=== PATIENT | male | born 1980 ===

== ENCOUNTER 2025-02-10 07:15 | Inpatient (IN) | payer OTHER ==
[~2025-02-10] VITALS: Ht 182.9 cm; Wt 120.4 kg
--- NOTE | 2025-02-10 07:27 | ED.PDOC ---
General HPI Comments This is a 44 year old male presenting to the ED with chief complaint of abdominal pain. Patient reports that he has been experiencing 10/10 lower abdominal pain with associated hematuria since an hour ago. Patient relays that his pain is similar to the time when he had a kidney stone. Patient denies any N/V/D, dysuria, flank pain, fever, or chills. Chief Complaint: Abdominal Pain Time Seen by MD: 07:25 Reviewed notes: Nurses Notes, Medications, Allergies Allergies: Coded Allergies: No Known Drug Allergy (Verified Allergy, Unknown, 02/10/25) Information Source: Patient Mode of Arrival: Ambulatory Severity: Moderate Timing: Hours Duration: Since onset Prehospital treatment: None Onset: Spontaneous Symptoms: Hematuria History of: Kidney stone Location: Suprapubic Penile discharge: None Modifying factors: None associated signs and symptoms: Abdominal Pain, Hematuria Past Medical History PAST MEDICAL HISTORY: HIV, Kidney Stones Surgical History (Other): Rt humerus surgery Family History Family History: Reviewed,noncontributory to illness Social History Smoker: Non-Smoker Alcohol: Denies ETOH Use Drugs: Denies Drug Use Lives In: Home Constitutional: denies: chills, diaphoresis, fatigue, fever, malaise, sweats, weakness, others EENTM: denies: blurred vision, double vision, ear bleeding, ear discharge, ear drainage, ear pain, ear ringing, eye pain, eye redness, hearing loss, mouth pain, mouth swelling, nasal discharge, nose bleeding, nose congestion, nose pain, photophobia, tearing, throat pain, throat swelling, voice changes, others Respiratory: denies: cough, hemoptysis, orthopnea, SOB at rest, shortness of breath, SOB with excertion, stridor, wheezing, others Cardiovascular: denies: chest pain, dizzy spells, diaphoresis, Dyspnea on exertion, edema, irregular heart beat, left arm pain, lightheadedness, palpitations, PND, syncope, others Gastrointestinal: reports: abdominal pain; denies: abdomen distended, blood streaked bowels, constipated, diarrhea, dysphagia, difficulty swallowing, hematemesis, melena, nausea, poor appetite, poor fluid intake, rectal bleeding, rectal pain, vomiting, others Genitourinary: reports: hematuria; denies: burning, dysuria, flank pain, frequency, incontinence, penile discharge, penile sore, pain, testicle pain, testicle swelling, urgency, others Neurological: denies: dizziness, fainting, headache, left sided numbness, left sided weakness, numbness, paresthesia, pre-existing deficit, right sided numbness, right sided weakness, seizure, speech problems, tingling, tremors, weakness, others Musculoskeletal: denies: back pain, gout, joint pain, joint swelling, muscle pain, muscle stiffness, neck pain, others Integumetry: denies: bruises, change in color, change in hair/nails, dryness, laceration, lesions, lumps, rash, wounds, others Allergic/Immunocompromised: denies: Difficulty Healing, Frequent Infections, Hives, Itching, others Hematologic/Lymphatic: denies: anemia, blood clots, easy bleeding, easy bruising, swollen glands, others Endocrine: denies: excessive hunger, excessive sweating, excessive thirst, excessive urination, flushing, intolerance to cold, intolerance to heat, unexplained weight gain, unexplained weight loss, others Psychiatric: denies: anxiety, bipolar disorder, depression, hopeless, panic disorder, schizophrenia, sleepless, suicidal, others All Other Systems: Reviewed and Negative Physical Exam General Appearance: Moderate Distress HEENT: Normal ENT Inspection, Pharynx Normal, TMs Normal Neck: Full Range of Motion, Non-Tender, Normal, Normal Inspection Respiratory: Chest Non-Tender, Lungs Clear, No Accessory Muscle Use, No Respiratory Distress, Normal Breath Sounds Cardiovascular: No Edema, No JVD, No Murmur, No Gallop, Normal Peripheral Pulses, Regular Rate/Rhythm Breast Exam: Deferred Gastrointestinal: LLQ, No Organomegaly, No Pulsatile Mass, Normal Bowel Sounds, RLQ, Soft, Suprapubic, Tenderness Genitalia: Deferred Pelvic: Deferred Rectal: Deferred Extremities: No calf tenderness, Normal capillary refill, No pedal edema Musculoskeletal : Apperance: Normal Neurologic: Alert, gang ripsaw operator II-XII nml as Tested, Motor Weakness, Normal Affect, Normal Mood, No Sensory Deficits Cerebellar Function: Normal Reflexes: Normal Skin: Dry, Normal Color, Warm Lymphatic: No Adenopathy Was a procedure done? Was a procedure done?: No Differential Diagnosis Kidney stone (Female): N/A Kidney stone (Male): Pyelonephritis, Urinary obstruction, Urolithiasis X-Ray, Labs, Meds, VS Vital Signs Date Time Temp Pulse Resp B/P (MAP) Pulse Ox O2 Delivery O2 Flow Rate FiO2 02/10/25 08:24 79 20 133/83 02/10/25 07:16 97.7 84 20 171/94 95 97.7 Lab Test 02/10/25 08:16 02/10/25 08:00 Range/Units Urine Color Yellow Yellow Urine Clarity Ex.turbid Clear Urine pH 5.5 5.0-9.0 Urine Specific [place] 1.036 H 1.001-1.035 Urine Protein 1+ H Negative Urine Ketones Negative Negative Urine Blood 3+ H Negative /uL Urine Nitrite Negative Negative Urine Bilirubin Negative Negative Urine Urobilinogen Normal Negative mg/dL Urine Leukocyte Esterase Negative Negative /uL Urine RBC 66 0 - 3 /hpf Urine Microscopic WBC 0-3 /HPF Urine Squamous Epithelial Cells Few <5 /hpf Urine Amorphous Crystals Mod None Seen /hpf Urine Bacteria None seen None Seen /hpf Urine Mucus Moderate None Seen Urine Glucose Trace Normal mg/dL White Blood Count 10.9 H 4.4-10.8 10^3/uL Red Blood Count 5.43 4.5-5.90 10^6/uL Hemoglobin 14.7 13.5-17.5 g/dL Hematocrit 43.8 41.0-53.0 % Mean Corpuscular Volume 80.8 80.0-100.0 fL Mean Corpuscular Hemoglobin 27.1 L 28.0-32.0 pg Mean Corpuscular Hemoglobin Concent 33.5 32.0-36.0 g/dL Red Cell Distribution Width 17.2 H 11.8-14.3 % Platelet Count 371 140-450 10^3/uL Mean Platelet Volume 7.7 6.9-10.8 fL Neutrophils (%) (Auto) 68.6 37.0-80.0 % Lymphocytes (%) (Auto) 24.3 10.0-50.0 % Monocytes (%) (Auto) 6.1 0.0-12.0 % Eosinophils (%) (Auto) 0.4 0.0-7.0 % Basophils (%) (Auto) 0.6 0.0-2.0 % Neutrophils # (Auto) 7.5 1.6-8.6 10 ^3/uL Lymphocytes # (Auto) 2.6 0.4-5.4 10 ^3/uL Monocytes # (Auto) 0.7 0-1.3 10 ^3/uL Eosinophils # (Auto) 0 0-0.8 10 ^3/uL Basophils # (Auto) 0.1 0-0.2 10 ^3/uL Nucleated Red Blood Cells 0.2 % Sodium Level 140 136-145 mmol/L Potassium Level 4.4 3.5-5.1 mmol/L Chloride Level 104 98-107 mmol/L Carbon Dioxide Level 22 20-31 mmol/L Anion Gap 14 5-15 Blood Urea Nitrogen 9 9-23 mg/dL Creatinine 1.07 0.700-1.30 mg/dL Glomerular Filtration Rate Calc 88 >90 mL/min BUN/Creatinine Ratio 8.4 L 10.0-20.0 Serum Glucose 156 H 74-106 mg/dL Calcium Level 9.6 8.7-10.4 mg/dL Current Medications Medications (Trade) Dose Ordered Sig/John Route Start Time Stop Time Status Last Admin Ondansetron HCl (Zofran) 4 mg ONCE ONCE IV 02/10/25 07:30 02/10/25 07:31 DC 02/10/25 08:22 Hydromorphone HCl (Dilaudid Injection) 0.5 mg ONCE ONCE IV 02/10/25 07:30 02/10/25 07:31 DC 02/10/25 08:24 Sodium Chloride 500 ml @ 500 mls/hr Q1H ONCE IVB 02/10/25 07:30 02/10/25 08:29 DC 02/10/25 07:30 CT Abd/Pel indicates: 1. Mild left hydronephrosis with a 3 mm stone at the left ureterovesical junction. 2. Additional nonobstructing stone in the left renal collecting system measuring 17 mm. 3. Hepatic steatosis. 4. Pulmonary nodules measuring up to 12 mm. 5. Follow-up CT chest in 3 months recommended. IV Hep-Lock was established The patient is being given a bolus of normal saline at 500 cc The patient was given Dilaudid 0.5 mg for the pain The patient was given Zofran 4 mg IV push for the nausea At this time, the patient is being admitted to the hospitalist. The patient is still having persistent pain. We will also manage the patient's pain as it persists. The patient's CBC is within normal limits except for an elevated white blood cell count of 10.9 The chemistry panel is within normal limits The urine test is negative for infection but positive for blood The patient is admitted A urology consult will be obtained Images Reviewed?: Images reviewed and evaluated by me Time of 1ST Reevaluation: 08:53 Reevaluation 1ST: Unchanged Patient Education/Counseling: Diagnosis, Treatment, Prognosis Family Education/Counseling: No Family Present SEPSIS Sepsis Screen Date sepsis recognized/suspect: Feb 10, 2025 Time Sepsis recognized/suspect: 715 Recent Procedure: No On Antibiotic Therapy: No Respiratory Rate >20: No Heart Rate >90: No Temp<36 C (96.8 F) or >38.3 C: No SBP <90 or MAP <65 mmHG: No New Acute Mental Status Change: No Is the patient on CPAP, BIPAP,: No Physician Orders Ct Ab Pel Wo Con-No Oral Or Iv (02/10/25 07:25) Heplock Iv (02/10/25 07:25) Vital Signs Date Time Temp Pulse Resp B/P (MAP) Pulse Ox O2 Delivery O2 Flow Rate FiO2 02/10/25 08:24 79 20 133/83 02/10/25 07:16 97.7 84 20 171/94 95 97.7 Laboratory Tests Test 02/10/25 08:00 White Blood Count 10.9 10^3/uL (4.4-10.8) H Medications Medications Dose Ordered Sig/John Route Start Time Stop Time Status Last Admin Dose Admin Hydromorphone HCl 0.5 mg ONCE ONCE IV 02/10/25 07:30 02/10/25 07:31 DC 02/10/25 08:24 Ondansetron HCl 4 mg ONCE ONCE IV 02/10/25 07:30 02/10/25 07:31 DC 02/10/25 08:22 Sodium Chloride 500 ml @ 500 mls/hr Q1H ONCE IVB 02/10/25 07:30 02/10/25 08:29 DC 02/10/25 07:30 Departure 1 Departure Time of Disposition: 08:53 Impression: Primary Impression: Renal colic Additional Impressions: Hydronephrosis Qualified Codes: N13.30 - Unspecified hydronephrosis Intractable abdominal pain Disposition: 09 ADMITTED INPATIENT Admit to: Med Surg Condition: Fair Critical Care Note Critical Care Time?: No Stability Stability form required: Yes Unstable for transfer: ED Physician Assesment (Clinical assesment) Heart Score Heart Score: Heart Score Response (Comments) Value History N/A 0 EKG N/A 0 Age N/A 0 Risk Factors N/A 0 Troponin N/A 0 Total 0 I personally scribed for DIANE DEJESUS MD ([email or web address]) on 02/10/25 at 07:27. Electronically submitted by Paolo Acevedo ([email or web address]). I personally scribed for DIANE DEJESUS MD ([email or web address]) on 02/10/25 at 08:12. Electronically submitted by Paolo Acevedo ([email or web address]). DIANE DEJESUS MD Feb 10, 2025 07:27
[2025-02-10] MEDS: SODIUM CHLORIDE 0.9% 500 ML IVB ONE (07:30)
--- NOTE | 2025-02-10 08:08 | DVH ---
Indication: pain Comparison: None Technique: Helical axial scans were performed through the abdomen and pelvis without intravenous cont rast. Subsequently, coronal and sagittal reformations were obtained. Dose lowering techniques have been used including automated exposure control and adjustment of mA and /or kv according to patient size. FINDINGS: Limited evaluation of the vasculature and solid organs due to lack of intravenous contrast. LUNGS BASES: 12 mm nodule along the right major fissure (series 3 image 11). Additional micronodule i n the right middle lobe measuring 4 mm (image 2). Left upper lobe 4 mm (image 1). LIVER: Hepatic steatosis. SPLEEN: Normal GALLBLADDER: Normal PANCREAS: Normal ADRENAL GLANDS: Normal KIDNEYS: Mild left hydronephrosis with a 3 mm stone at the left ureterovesical junction. Additional n onobstructing stone in the left renal collecting system measuring 17 mm. GI: No bowel dilation or wall thickening. Appendix not discretely identified. LYMPH NODES: Normal VASCULAR STRUCTURES: Normal BLADDER: Normal PELVIC ORGAN: Normal FREE AIR OR FREE FLUID: None OSSEOUS STRUCTURES: Normal SOFT TISSUES: Normal DLP is 1446.95 mGy-cm. CTDI vol is 22.95 mGy. IMPRESSION: 1. Mild left hydronephrosis with a 3 mm stone at the left ureterovesical junction. 2. Additional nonobstructing stone in the left renal collecting system measuring 17 mm. 3. Hepatic steatosis. 4. Pulmonary nodules measuring up to 12 mm. 5. Follow-up CT chest in 3 months recommended.
[2025-02-10] MEDS: ONDANSETRON HCL 4 MG/2 ML VIAL IV ONE (08:22)
[2025-02-10] MEDS: HYDROmorphone HCL 2 MG/ML VL/or syr IV ONE ×2 (08:24→12:28)
[2025-02-10 08:34] LABS: Chloride 104 mmol/L (98-107); Potassium 4.4 mmol/L (3.5-5.1); Sodium 140 mmol/L (136-145)
[2025-02-10 08:35] LABS: Anion Gap 14 (5-15); Carbon Dioxide 22 mmol/L (20-31); Hematocrit 43.8 % (41.0-53.0); Hemoglobin 14.7 g/dL (13.5-17.5); Mean Corpuscular Hemoglobin 27.1 pg (28.0-32.0); Mean Corpuscular Volume 80.8 fL (80.0-100.0); Nucleated Red Blood Cells % 0.2 %
[2025-02-10 08:36] LABS: Calcium 9.6 mg/dL (8.7-10.4)
[2025-02-10 08:40] LABS: Urine Amorphous Crystal MOD /hpf (None Seen); Urine Protein, UAD 1+ (Negative)
[2025-02-10 08:41] LABS: BUN/Creatinine Ratio 8.4 (10.0-20.0)
[2025-02-10 08:42] LABS: Blood Urea Nitrogen 9 mg/dL (9-23); Glucose 156 mg/dL (74-106)
[2025-02-10] MEDS ORDERED: ACETAMINOPHEN 325 MG TAB PO PRN (12:30)
[2025-02-10] MEDS ORDERED: MORPHINE SULFATE INJ 2 MG/ml SYRG IV PRN (12:30)
[2025-02-10] MEDS ORDERED: ONDANSETRON HCL 4 MG/2 ML VIAL IV PRN (12:30)
[2025-02-10] MEDS ORDERED: HYDROcodone-ACET 5/325MG TAB PO PRN (12:30)
[2025-02-10 12:33] VITALS: PULSE 88; RESP 20; O2SAT 95
[2025-02-10] MEDS: TAMSULOSIN HYDROCHLORIDE 0.4 MG CAP PO ONE (12:39)
[2025-02-10] MEDS: SODIUM CHLORIDE 0.9% 1,000 ML IV SCH (12:40)
--- NOTE | 2025-02-10 12:42 | DVHHP2 ---
History of Present Illness Reason for Visit: Abdominal pain History of Present Illness Marco A Avila is a 44-year-old male with past medical history of HIV, kidney stones, left wrist surgery, and right humerus surgery who presents to the ED with abdominal pain that started today. Reports pain was 10/10 numb and constant. Reports that there are no triggering or alleviating factors. Patient reports that he lives at home with his . He also reports upon examination when he went to the bathroom here in the ED that he passed a stone. Patient also reports that he gets injections for his HIV once every 2 weeks on an outpatient basis. Patient reports he recently went to [facility] 3 weeks ago. Patient also reports that recent sick contacts of the flu. Patient denies any recent trauma or injury, recent ingestion of spoiled food, chest pain, shortness of breath, fever, chills, lightheadedness, weakness, dizziness, nausea, vomiting, diarrhea, or urinary symptoms. Infectious disease: HIV Past Medical History Nephrolithiasis Past Surgical History: Other (Right humerus surgery and left wrist surgery) Family History: None Smoke: No ALCOHOL: none Drugs: None Lives: with Family Domestic Violence: Neg Review of Systems Gastrointestinal: Abdominal Pain Genitourinary: Hematuria Allergies: Coded Allergies: No Known Drug Allergy (Verified Allergy, Unknown, 02/10/25) Exam Vital Signs Vital Signs Date Time Temp Pulse Resp B/P (MAP) Pulse Ox O2 Delivery O2 Flow Rate FiO2 02/10/25 10:23 88 20 157/87 02/10/25 10:16 98.4 94 98.4 General Appearance: Alert, Oriented X3, Cooperative HEENT: Atraumatic, PERRLA, EOMI, Mucous membr. moist/pink Respiratory: Normal air movement Cardiovascular: Regular rate, Normal S1, Normal S2 Abdominal: Normal bowel sounds, Soft Extremities: No clubbing, No cyanosis Neuro: Normal gait, Normal speech, Strength at 5/5 X4 ext, Normal tone, Sens ation intact Psych/Mental Status: Mental status NL, Mood NL Labs/Xrays Labs Test 02/10/25 08:16 02/10/25 08:00 Range/Units Urine Color Yellow Yellow Urine Clarity Ex.turbid Clear Urine pH 5.5 5.0-9.0 Urine Specific [place] 1.036 H 1.001-1.035 Urine Protein 1+ H Negative Urine Ketones Negative Negative Urine Blood 3+ H Negative /uL Urine Nitrite Negative Negative Urine Bilirubin Negative Negative Urine Urobilinogen Normal Negative mg/dL Urine Leukocyte Esterase Negative Negative /uL Urine RBC 66 0 - 3 /hpf Urine Microscopic WBC 0-3 /HPF Urine Squamous Epithelial Cells Few <5 /hpf Urine Amorphous Crystals Mod None Seen /hpf Urine Bacteria None seen None Seen /hpf Urine Mucus Moderate None Seen Urine Glucose Trace Normal mg/dL White Blood Count 10.9 H 4.4-10.8 10^3/uL Red Blood Count 5.43 4.5-5.90 10^6/uL Hemoglobin 14.7 13.5-17.5 g/dL Hematocrit 43.8 41.0-53.0 % Mean Corpuscular Volume 80.8 80.0-100.0 fL Mean Corpuscular Hemoglobin 27.1 L 28.0-32.0 pg Mean Corpuscular Hemoglobin Concent 33.5 32.0-36.0 g/dL Red Cell Distribution Width 17.2 H 11.8-14.3 % Platelet Count 371 140-450 10^3/uL Mean Platelet Volume 7.7 6.9-10.8 fL Neutrophils (%) (Auto) 68.6 37.0-80.0 % Lymphocytes (%) (Auto) 24.3 10.0-50.0 % Monocytes (%) (Auto) 6.1 0.0-12.0 % Eosinophils (%) (Auto) 0.4 0.0-7.0 % Basophils (%) (Auto) 0.6 0.0-2.0 % Neutrophils # (Auto) 7.5 1.6-8.6 10 ^3/uL Lymphocytes # (Auto) 2.6 0.4-5.4 10 ^3/uL Monocytes # (Auto) 0.7 0-1.3 10 ^3/uL Eosinophils # (Auto) 0 0-0.8 10 ^3/uL Basophils # (Auto) 0.1 0-0.2 10 ^3/uL Nucleated Red Blood Cells 0.2 % Sodium Level 140 136-145 mmol/L Potassium Level 4.4 3.5-5.1 mmol/L Chloride Level 104 98-107 mmol/L Carbon Dioxide Level 22 20-31 mmol/L Anion Gap 14 5-15 Blood Urea Nitrogen 9 9-23 mg/dL Creatinine 1.07 0.700-1.30 mg/dL Glomerular Filtration Rate Calc 88 >90 mL/min BUN/Creatinine Ratio 8.4 L 10.0-20.0 Serum Glucose 156 H 74-106 mg/dL Calcium Level 9.6 8.7-10.4 mg/dL Indication: pain Comparison: None Technique: Helical axial scans were performed through the abdomen and pelvis without intravenous contrast. Subsequently, coronal and sagittal reformations were obtained. Dose lowering techniques have been used including automated exposure control and adjustment of mA and/or kv according to patient size. FINDINGS: Limited evaluation of the vasculature and solid organs due to lack of intravenous contrast. LUNGS BASES: 12 mm nodule along the right major fissure (series 3 image 11). Additional micronodule in the right middle lobe measuring 4 mm (image 2). Left upper lobe 4 mm (image 1). LIVER: Hepatic steatosis. SPLEEN: Normal GALLBLADDER: Normal PANCREAS: Normal ADRENAL GLANDS: Normal KIDNEYS: Mild left hydronephrosis with a 3 mm stone at the left ureterovesical junction. Additional nonobstructing stone in the left renal collecting system measuring 17 mm. GI: No bowel dilation or wall thickening. Appendix not discretely identified. LYMPH NODES: Normal VASCULAR STRUCTURES: Normal BLADDER: Normal PELVIC ORGAN: Normal FREE AIR OR FREE FLUID: None OSSEOUS STRUCTURES: Normal SOFT TISSUES: Normal DLP is 1446.95 mGy-cm. CTDI vol is 22.95 mGy. IMPRESSION: 1. Mild left hydronephrosis with a 3 mm stone at the left ureterovesical junction. 2. Additional nonobstructing stone in the left renal collecting system measuring 17 mm. 3. Hepatic steatosis. 4. Pulmonary nodules measuring up to 12 mm. 5. Follow-up CT chest in 3 months recommended. SEPSIS Sepsis Screen Date sepsis recognized/suspect: Feb 10, 2025 Time Sepsis recognized/suspect: 715 Recent Procedure: No On Antibiotic Therapy: No Respiratory Rate >20: No Heart Rate >90: No Temp<36 C (96.8 F) or >38.3 C: No SBP <90 or MAP <65 mmHG: No New Acute Mental Status Change: No Is the patient on CPAP, BIPAP,: No Physician Orders Ct Ab Pel Wo Con-No Oral Or Iv (02/10/25 07:25) Heplock Iv (02/10/25 07:25) Vital Signs Date Time Temp Pulse Resp B/P (MAP) Pulse Ox O2 Delivery O2 Flow Rate FiO2 02/10/25 10:23 88 20 157/87 02/10/25 10:16 98.4 88 16 157/87 (110) 94 98.4 02/10/25 08:24 79 20 133/83 02/10/25 07:16 97.7 84 20 171/94 95 97.7 Laboratory Tests Test 02/10/25 08:00 White Blood Count 10.9 10^3/uL (4.4-10.8) H Medications Medications Dose Ordered Sig/John Route Start Time Stop Time Status Last Admin Dose Admin Hydromorphone HCl 0.5 mg ONCE ONCE IV 02/10/25 07:30 02/10/25 07:31 DC 02/10/25 08:24 0.5 MG Ondansetron HCl 4 mg ONCE ONCE IV 02/10/25 07:30 02/10/25 07:31 DC 02/10/25 08:22 4 MG Sodium Chloride 500 ml @ 500 mls/hr Q1H ONCE IVB 02/10/25 07:30 02/10/25 08:29 DC 02/10/25 07:30 500 MLS/HR Assessment/Plan Assessment/Plan Assessment Intractable abdominal pain with hematuria likely due to mild left hydronephrosis with a 3 mm stone at the left ureterovesical junction nonobstructing stone in the left renal collecting system measuring 17 mm Leukocytosis likely due to left hydronephrosis Hepatic steatosis Pulmonary nodules measuring up to 12 mm History of HIV History of nephrolithiasis History of right humerus surgery History of left wrist surgery Plan Admit to med surge Influenza test COVID test Antiemetics Pain management UA NS 500 cc given ED Flomax Hemoglobin A1c ISS and Accu-Cheks Diet Strain all urine IV fluids Home medications reconciled DVT prophylaxis-SCDs PUD prophylaxis-PPIs Urology consult Discussed plan of care with patient and nurse [id number] Behavior change smoking greater than 10 minutes about use of other options also gave option of nicotine patch [id number] Preventive counseling healthy eating habits, physical activity, and regular checkups Plan discussed with: Patient Date of Service: Feb 10, 2025 Billing Provider: MARIBELL ACHARYA Common Visit Codes: [id number]-[id number] INP/OBS CARE (HIGH) Secondary Visit Codes: [id number] COUNSELING IND MARIBELL ACHARYA Feb 10, 2025 12:42
--- NOTE | 2025-02-10 13:01 | DVHINCON2 ---
Date of service: Feb 10, 2025 Referring Physician Hospitalist Reason for Consultation UVJ stone History of Present Illness History Source: RN Notes, MD Notes Exam Limitations: No limitations HPI 44 year old male presenting to the ED with chief complaint of abdominal pain. Patient reports that he has been experiencing 10/10 lower abdominal pain with associated hematuria since an hour ago. Patient relays that his pain is similar to the time when he had a kidney stone. Patient denies any N/V/D, dysuria, flank pain, fever, or chills. CT shows a 3 mm left uvj stone with mild hydro. H&P Exam Vital Signs Vital Signs Date Time Temp Pulse Resp B/P (MAP) Pulse Ox O2 Delivery O2 Flow Rate FiO2 02/10/25 12:33 98.2 88 20 149/92 (111) 95 98.2 Labs/Xrays [place] [address] Ph: [phone] DIAGNOSTIC IMAGING Diagnostic Imaging Report : [id number] Signed PATIENT: OSCAR PENAT: [id number] UNIT: [id number] : 1980 LOC: ER ROOM / BED: / AGE / SEX: 44 / M ADM STATUS: REG ER SERVICE 0725 ORDERING PHYSICIAN: DIANE DEJESUS MD PROCEDURE(s): ABPL - CT AB PEL WO CON-NO ORAL OR IV REASON: pain ORDER NUMBER(s): [id number], ACCESSION NUMBER(s): [id number] Indication: pain Comparison: None Technique: Helical axial scans were performed through the abdomen and pelvis without intravenous contrast. Subsequently, coronal and sagittal reformations were obtained. Dose lowering techniques have been used including automated exposure control and adjustment of mA and/or kv according to patient size. FINDINGS: Limited evaluation of the vasculature and solid organs due to lack of intravenous contrast. LUNGS BASES: 12 mm nodule along the right major fissure (series 3 image 11). Additional micronodule in the right middle lobe measuring 4 mm (image 2). Left upper lobe 4 mm (image 1). LIVER: Hepatic steatosis. SPLEEN: Normal GALLBLADDER: Normal PANCREAS: Normal ADRENAL GLANDS: Normal KIDNEYS: Mild left hydronephrosis with a 3 mm stone at the left ureterovesical junction. Additional nonobstructing stone in the left renal collecting system measuring 17 mm. GI: No bowel dilation or wall thickening. Appendix not discretely identified. LYMPH NODES: Normal VASCULAR STRUCTURES: Normal BLADDER: Normal PELVIC ORGAN: Normal FREE AIR OR FREE FLUID: None OSSEOUS STRUCTURES: Normal SOFT TISSUES: Normal DLP is 1446.95 mGy-cm. CTDI vol is 22.95 mGy. IMPRESSION: 1. Mild left hydronephrosis with a 3 mm stone at the left ureterovesical junction. 2. Additional nonobstructing stone in the left renal collecting system measuring 17 mm. 3. Hepatic steatosis. 4. Pulmonary nodules measuring up to 12 mm. 5. Follow-up CT chest in 3 months recommended. ATED BY: ITZ GARCIA MD DICTATED DATE/TIME: 02/10/25805 SIGNED BY: ITZ GARCIA MD SIGNED DATE/TIME: 02/10/25805 CC: Labs Test 02/10/25 08:16 02/10/25 08:00 Range/Units Urine Color Yellow Yellow Urine Clarity Ex.turbid Clear Urine pH 5.5 5.0-9.0 Urine Specific [place] 1.036 H 1.001-1.035 Urine Protein 1+ H Negative Urine Ketones Negative Negative Urine Blood 3+ H Negative /uL Urine Nitrite Negative Negative Urine Bilirubin Negative Negative Urine Urobilinogen Normal Negative mg/dL Urine Leukocyte Esterase Negative Negative /uL Urine RBC 66 0 - 3 /hpf Urine Microscopic WBC 0-3 /HPF Urine Squamous Epithelial Cells Few <5 /hpf Urine Amorphous Crystals Mod None Seen /hpf Urine Bacteria None seen None Seen /hpf Urine Mucus Moderate None Seen Urine Glucose Trace Normal mg/dL White Blood Count 10.9 H 4.4-10.8 10^3/uL Red Blood Count 5.43 4.5-5.90 10^6/uL Hemoglobin 14.7 13.5-17.5 g/dL Hematocrit 43.8 41.0-53.0 % Mean Corpuscular Volume 80.8 80.0-100.0 fL Mean Corpuscular Hemoglobin 27.1 L 28.0-32.0 pg Mean Corpuscular Hemoglobin Concent 33.5 32.0-36.0 g/dL Red Cell Distribution Width 17.2 H 11.8-14.3 % Platelet Count 371 140-450 10^3/uL Mean Platelet Volume 7.7 6.9-10.8 fL Neutrophils (%) (Auto) 68.6 37.0-80.0 % Lymphocytes (%) (Auto) 24.3 10.0-50.0 % Monocytes (%) (Auto) 6.1 0.0-12.0 % Eosinophils (%) (Auto) 0.4 0.0-7.0 % Basophils (%) (Auto) 0.6 0.0-2.0 % Neutrophils # (Auto) 7.5 1.6-8.6 10 ^3/uL Lymphocytes # (Auto) 2.6 0.4-5.4 10 ^3/uL Monocytes # (Auto) 0.7 0-1.3 10 ^3/uL Eosinophils # (Auto) 0 0-0.8 10 ^3/uL Basophils # (Auto) 0.1 0-0.2 10 ^3/uL Nucleated Red Blood Cells 0.2 % Sodium Level 140 136-145 mmol/L Potassium Level 4.4 3.5-5.1 mmol/L Chloride Level 104 98-107 mmol/L Carbon Dioxide Level 22 20-31 mmol/L Anion Gap 14 5-15 Blood Urea Nitrogen 9 9-23 mg/dL Creatinine 1.07 0.700-1.30 mg/dL Glomerular Filtration Rate Calc 88 >90 mL/min BUN/Creatinine Ratio 8.4 L 10.0-20.0 Serum Glucose 156 H 74-106 mg/dL Calcium Level 9.6 8.7-10.4 mg/dL Assessment/Plan Problem List: (1) Hydronephrosis (2) Renal colic (3) Intractable abdominal pain Plan IVF pain meds strain urine expulsive measures outpt follow up Plan discussed with: Patient, Other GIANNA ALFARO NP Feb 10, 2025 13:01
--- NOTE | 2025-02-10 17:47 | DVH ---
NON-CONTRAST CHEST COMPUTERIZED TOMOGRAPHY REASON FOR STUDY: pulm nodules COMPARISON: None TECHNIQUE: The exam was performed on a multidetector spiral scanner. Spiral scans were acquired throu gh the chest. 2-D coronal and sagittal reformatted images were provided. Radiation optimization: All CT scans at this facility use at least one of these dose optimization techniques: Automated exposure control mA and/or kV adjustment per patient size (includes targeted exams where dose is matched to cl inical indication) or iterative reconstruction. RADIATION DOSE: CTDI: 28.86 mGy DLP: 875.97 mGy-cm FINDINGS: There is an approximately 9 mm pleural-based solid nodule at the diaphragmatic surface of the right middle lobe. There is subsegmental bibasilar atelectasis in the lower lobes. There is no p leural effusion. There is no bronchiectasis or honeycombing. There are a few additional scattered 2-3 mm nodules. There is no pneumothorax. The heart is not enlarged. There is no pericardial effusion. There is no pathologic lymphadenopathy by size criteria. Partial visualization of the abdomen demons trates diffuse hypoattenuation of the liver. No acute osseous abnormality is identified. Recommend 3- month follow-up CT. IMPRESSION: 9 mm solid nodule at the diaphragmatic surface of the right middle lobe. Few additional 2-3 mm scatte red nodules. Fleischner Society Guidelines for Incidental Pulmonary Nodules: SOLID NODULES Single low-risk: < 6 mm No follow up. 6-[address] at 6-12 months, then consider CT at 18-24 months. > [address] at 3 months, PET/CT or bx. Single high risk: < [address] at 12 months. 6-[address] at 6-12 months, then consider CT at 18-24 months. > [address] at 3 months, PET/CT or bx. Multiple low risk: < 6 mm No follow up. 6-[address] at 3-6 months, then consider CT at 18-24 months. > [address] at 3-6 months, then consider CT at 18-24 months. Multiple high risk: < [address] at 12 months. 6-[address] at 3-6 months, then CT at 18-24 months. > [address] at 3-6 months, then CT at 18-24 months. SUBSOLID NODULES Ground glass: < 6 mm No follow up. > [address] at 6-12 months, then CT every 2 years for 5 years. Part solid: < 6 mm No follow up. > [address] at 3-6 months. If stable with solid component <6mm, annual CT for 5 years. Multiple: < [address] at 3-6 months. If stable, consider CT at 2 and 4 years. > [address] at 3-6 months. Subsequent based on most suspicious nodule. Notes: Recommendations do not apply to cancer screening, patient with immunosuppression or known primary can cer. Reference: Radiology 2017; Ottohojam et al; 000:1-16
[2025-02-10] MEDS: TAMSULOSIN HYDROCHLORIDE 0.4 MG CAP PO SCH (19:04)
[2025-02-10 21:18] LABS: COVID19 ANTIGEN SOFIA FIA NEGATIVE (NEGATIVE)
[2025-02-11] VITALS (9 sets, daily range): BP systolic 102–140; BP diastolic 71–94; PULSE 75–114; RESP 16–20; TEMP 97.5–100.5; O2SAT 92–95
[2025-02-11] MEDS ORDERED: CABO1SUS (02:37)
[2025-02-11 06:54] LABS: Nucleated Red Blood Cells % 0.1 %
[2025-02-11 07:01] LABS: Hematocrit 36.9 % (41.0-53.0); Hemoglobin 12.4 g/dL (13.5-17.5); Mean Corpuscular Hemoglobin 26.9 pg (28.0-32.0); Mean Corpuscular Volume 79.8 fL (80.0-100.0)
[2025-02-11 07:20] LABS: Albumin 4.2 g/dL (3.2-4.8); Anion Gap 9 (5-15); BUN/Creatinine Ratio 12.5 (10.0-20.0); Bilirubin, Total 0.6 mg/dL (0.2-1.0); Calcium 9.1 mg/dL (8.7-10.4); Carbon Dioxide 24 mmol/L (20-31); Chloride 106 mmol/L (98-107); Potassium 3.6 mmol/L (3.5-5.1); Sodium 139 mmol/L (136-145); Total Protein 7.3 g/dL (5.7-8.2)
[2025-02-11 07:32] LABS: Alanine Aminotransferase 98 U/L (7-40); Alkaline Phosphatase 135 U/L (46-116); Blood Urea Nitrogen 9 mg/dL (9-23); Glucose 113 mg/dL (74-106)
[2025-02-11 10:10] LABS: Hepatitis B Surface Antigen Negative (Negative)
[2025-02-11 10:46] LABS: Hepatitis C Antibody Reactive (Negative)
--- NOTE | 2025-02-11 12:31 | DVHINCON2 ---
Date of service: Feb 10, [address] godinez Reason for Consultation HIV and pulm nodules History of Present Illness HPI pt is a 44 yo male, h/o HIV and hepatitis C, CD4 count over 600, presented with flank pain/kidney stone. no respiratory complaints. CT chest reveals pulm nodules CT report noted 9 mm solid nodule at the diaphragmatic surface of the right middle lobe. Few additional 2-3 mm scattered nodules. Home Meds Reported Medications Cabotegravir & Rilpivirine (Cabenuva 600 & 900 mg/3Ml) 1 Sarai Sarai 02/11/25 Past Medical History Cardiac: No pertinent Hx Pulmonary: No pertinent Hx Central Nervous System: No pertinent Hx GI: No pertinent Hx Hemotology/Oncology: No pertinent Hx Hepatobiliary: No pertinent Hx Psychiatric: No pertinent Hx Musculoskeletal: No pertinent Hx Rheumotologic: No pertinent Hx Infectious Disease: HIV ENT: No pertinent Hx Renal/: No pertinent Hx Endocrine: No pertinent Hx Dermatology: No pertinent Hx Past Surgical History: No pertinent Hx Patient Family History: Fatty liver Review of Systems Constitutional: No symptom reported Ears, Nose, & Throat: No symptom reported Eyes: No symptom reported Pulmonary/Respiratory: No symptom reported Cardiovascular: No symptom reported Gastrointestinal: Abdominal Pain Genitourinary: No symptom reported Musculoskeletal: No symptom reported Skin: No symptom reported Psychiatric: No symptom reported Endocrine: No symptom reported Hemotologic/Lymphatic: No symptom reported H&P Exam Vital Signs Vital Signs Date Time Temp Pulse Resp B/P (MAP) Pulse Ox O2 Delivery O2 Flow Rate FiO2 02/11/25 09:00 97.5 89 17 121/71 (88) 92 97.5 02/11/25 02:45 Room Air* 0 21 General Appeara: Well developed, Well nourished, Normal Appearance Head Exam: Normal inspection Neck Exam: Normal inspection, Non-tender, Normal alignment Eye Exam: bilateral eye Normal inspection, bilateral eye PERRL, bilateral eye EOMI Ear Exam: bilateral ear Auricle normal, bilateral ear Canal normal Nasal Exam: Normal inspection Mouth: Normal Inspection Pulmonary/Respiratory: Normal inspection, Normal breath sounds, Chest non- tender Cardiovascular/Chest: Normal inspection Peripheral Pulses: 4+ carotid (R), 4+ carotid (L) Abdominal Exam: Normal bowel sounds Labs/Xrays Labs Test 02/11/25 06:13 02/10/25 20:00 02/10/25 17:05 02/10/25 08:16 Range/Units White Blood Count 8.0 # 4.4-10.8 10^3/uL Red Blood Count 4.63 4.5-5.90 10^6/uL Hemoglobin 12.4 #L 13.5-17.5 g/dL Hematocrit 36.9 #L 41.0-53.0 % Mean Corpuscular Volume 79.8 L 80.0-100.0 fL Mean Corpuscular Hemoglobin 26.9 L 28.0-32.0 pg Mean Corpuscular Hemoglobin Concent 33.7 32.0-36.0 g/dL Red Cell Distribution Width 17.1 H 11.8-14.3 % Platelet Count 311 140-450 10^3/uL Mean Platelet Volume 7.4 6.9-10.8 fL Neutrophils (%) (Auto) 65.9 37.0-80.0 % Lymphocytes (%) (Auto) 24.6 10.0-50.0 % Monocytes (%) (Auto) 8.2 0.0-12.0 % Eosinophils (%) (Auto) 0.8 0.0-7.0 % Basophils (%) (Auto) 0.5 0.0-2.0 % Neutrophils # (Auto) 5.3 1.6-8.6 10 ^3/uL Lymphocytes # (Auto) 2.0 0.4-5.4 10 ^3/uL Monocytes # (Auto) 0.7 0-1.3 10 ^3/uL Eosinophils # (Auto) 0.1 0-0.8 10 ^3/uL Basophils # (Auto) 0 0-0.2 10 ^3/uL Nucleated Red Blood Cells 0.1 % Sodium Level 139 136-145 mmol/L Potassium Level 3.6 3.5-5.1 mmol/L Chloride Level 106 98-107 mmol/L Carbon Dioxide Level 24 20-31 mmol/L Anion Gap 9 5-15 Blood Urea Nitrogen 9 9-23 mg/dL Creatinine 0.72 0.700-1.30 mg/dL Glomerular Filtration Rate Calc 116 >90 mL/min BUN/Creatinine Ratio 12.5 10.0-20.0 Serum Glucose 113 H 74-106 mg/dL Calcium Level 9.1 8.7-10.4 mg/dL Total Bilirubin 0.6 0.2-1.0 mg/dL Aspartate Amino Transferase (AST) 73 H 13-40 U/L Alanine Aminotransferase (ALT) 98 H 7-40 U/L Alkaline Phosphatase 135 H 46-116 U/L Total Protein 7.3 5.7-8.2 g/dL Albumin 4.2 3.2-4.8 g/dL Hepatitis B Surface Antigen Negative Negative Hepatitis C Antibody Reactive *A Negative Influenza Type A Antigen Negative Negative Influenza Type B Antigen Negative Negative SARS-CoV-2 Antigen (Rapid) Negative NEGATIVE Urine Color Yellow Yellow Urine Clarity Ex.turbid Clear Urine pH 5.5 5.0-9.0 Urine Specific [place] 1.036 H 1.001-1.035 Urine Protein 1+ H Negative Urine Ketones Negative Negative Urine Blood 3+ H Negative /uL Urine Nitrite Negative Negative Urine Bilirubin Negative Negative Urine Urobilinogen Normal Negative mg/dL Urine Leukocyte Esterase Negative Negative /uL Urine RBC 66 0 - 3 /hpf Urine Microscopic WBC 0-3 /HPF Urine Squamous Epithelial Cells Few <5 /hpf Urine Amorphous Crystals Mod None Seen /hpf Urine Bacteria None seen None Seen /hpf Urine Mucus Moderate None Seen Urine Glucose Trace Normal mg/dL Assessment/Plan Plan HIV on anti-retrovirals pulm nodules h/o Hep C pt seen and examined CT reviewed no intervention required at this point recommend follow up in 2-3 months with rpt imaging out -pt continue supportive care per primary team Plan discussed with: Patient ALIA CARRENO MD Feb 11, 2025 12:31
--- NOTE | 2025-02-11 12:33 | DVHPN2 ---
Progress Note - Dictate Date Seen: Feb 11, 2025 Has the PT tested + for MRSA If YES, has PT been informed?: No Medical Necessity Reason Pt with a Central, PICC or Fol: No vital signs Vital Sign Date Time Temp Pulse Resp B/P (MAP) Pulse Ox O2 Delivery O2 Flow Rate FiO2 02/11/25 09:00 97.5 89 17 121/71 (88) 92 97.5 02/11/25 02:45 Room Air* 0 21 Total Intake and Output 02/10/25 02/10/25 02/11/25 15:00 23:00 07:00 Intake Total 290 ml 120 ml 220 ml Balance 290 ml 120 ml 220 ml medications Current Medications Medications Dose Ordered Sig/John Route Start Time Stop Time Status Last Admin Dose Admin Tamsulosin HCl 0.4 mg QPM PO 02/10/25 18:00 02/10/25 19:04 0.4 MG Sodium Chloride 1,000 ml @ 120 mls/hr Q8H20M IV 02/10/25 12:30 02/11/25 04:25 120 MLS/HR Acetaminophen/ Hydrocodone Bitart 1 tab Q4HP PRN PO 02/10/25 12:30 Ondansetron HCl 4 mg Q4HP PRN IV 02/10/25 12:30 Acetaminophen 650 mg Q6HP PRN PO 02/10/25 12:30 Morphine Sulfate 2 mg Q4HPRN PRN IV 02/10/25 12:30 Ceftriaxone Sodium 50 ml @ 100 mls/hr DAILY@09 IV 02/10/25 12:30 02/11/25 09:43 100 MLS/HR laboratory and microbiology Laboratory Tests 02/11/25 06:13 Test 02/11/25 06:13 Range/Units Serum Glucose 113 H 74-106 mg/dL Assessment/Plan HIV on anti-retrovirals pulm nodules h/o Hep C pt seen and examined events none better CT reviewed no intervention required at this point recommend follow up in 2-3 months with rpt imaging out -pt continue supportive care per primary team ok to dc Plan discussed with: Patient ALIA CARRENO MD Feb 11, 2025 12:32
--- NOTE | 2025-02-11 15:12 | DVHPN2 ---
Reviewed: H&P Changes from previous H/P or p: No Changes General: Per HPI Gastrointestinal: Abdominal Pain Genitourinary: Hematuria Objective Vitals Vital Signs Date Time Temp Pulse Resp B/P (MAP) Pulse Ox O2 Delivery O2 Flow Rate FiO2 02/11/25 13:00 98.2 89 17 130/82 (98) 93 98.2 02/11/25 02:45 Room Air* 0 21 Intake/Output Intake and Output 02/11/25 07:00 Intake Total 630 ml Balance 630 ml Intake Oral 220 ml IV Total 410 ml # Voids 1 Exam General Appearance: Alert, Oriented X3, Cooperative HEENT: Atraumatic, PERRLA, EOMI, Mucous membr. moist/pink Respiratory: Normal air movement Cardiovascular: Regular rate, Normal S1, Normal S2 Abdominal: Normal bowel sounds, Soft Extremities: No clubbing, No cyanosis Neuro: Normal gait, Normal speech, Strength at 5/5 X4 ext, Normal tone, Sensation intact Psych/Mental Status: Mental status NL, Mood NL Medications Current Medications Medications Dose Ordered Sig/John Route Start Time Stop Time Status Last Admin Dose Admin Tamsulosin HCl 0.4 mg QPM PO 02/10/25 18:00 02/10/25 19:04 0.4 MG Sodium Chloride 1,000 ml @ 120 mls/hr Q8H20M IV 02/10/25 12:30 02/11/25 13:58 120 MLS/HR Acetaminophen/ Hydrocodone Bitart 1 tab Q4HP PRN PO 02/10/25 12:30 Ondansetron HCl 4 mg Q4HP PRN IV 02/10/25 12:30 Acetaminophen 650 mg Q6HP PRN PO 02/10/25 12:30 Morphine Sulfate 2 mg Q4HPRN PRN IV 02/10/25 12:30 Ceftriaxone Sodium 50 ml @ 100 mls/hr DAILY@09 IV 02/10/25 12:30 02/11/25 09:43 100 MLS/HR Laboratory Results Laboratory Tests 02/11/25 06:13 Chemistry Test 02/11/25 06:13 Albumin 4.2 g/dL (3.2-4.8) Calcium Level 9.1 mg/dL (8.7-10.4) Total Protein 7.3 g/dL (5.7-8.2) LFT Test 02/11/25 06:13 Alanine Aminotransferase (ALT) 98 U/L (7-40) H Alkaline Phosphatase 135 U/L (46-116) H Aspartate Amino Transferase (AST) 73 U/L (13-40) H Total Bilirubin 0.6 mg/dL (0.2-1.0) Urinalysis Test 02/10/25 08:16 Urine Color Yellow (Yellow) Urine Clarity Ex.turbid (Clear) Urine pH 5.5 (5.0-9.0) Urine Specific [place] 1.036 (1.001-1.035) Urine Protein 1+ (Negative) H Urine Ketones Negative (Negative) Urine Blood 3+ /uL (Negative) H Urine Nitrite Negative (Negative) Urine Bilirubin Negative (Negative) Urine Urobilinogen Normal mg/dL (Negative) Urine Leukocyte Esterase Negative /uL (Negative) Urine RBC 66 /hpf (0 - 3) Urine Microscopic WBC /HPF (0-3) Urine Squamous Epithelial Cells Few /hpf (<5) Urine Amorphous Crystals Mod /hpf (None Seen) Urine Bacteria None seen /hpf (None Seen) Urine Mucus Moderate (None Seen) Urine Glucose Trace mg/dL (Normal) Microbiology Microbiology Date/Time Source Procedure Growth Status 02/10/25 08:16 Voided Urine Urine Culture - Preliminary Resulted Labs and/or images reviewed: Labs reviewed by me, Image(s) reviewed by me Assessment/Plan Assessment/Plan 44-year-old male with past medical history of HIV, kidney stones, left wrist surgery, and right humerus surgery who presents to the ED with abdominal pain that started today. Reports pain was 10/10 numb and constant. Reports that there are no triggering or alleviating factors. Patient reports that he lives at home with his . He also reports upon examination when he went to the bathroom here in the ED that he passed a stone. Patient also reports that he gets injections for his HIV once every 2 weeks on an outpatient basis. Patient reports he recently went to [facility] 3 weeks ago. Patient also reports that recent sick contacts of the flu. 02/21: Pulmonology signing out recommend [address] outpatient. Urology recommend expulsive measures. Continuing IV fluids. Continuing pain control. Patient screen HCV positive, patient already has HIV specialist, recommend follow up with his primary infectious disease to repeat HCV PCR levels. Tomorrow we will repeat kidney ultrasound to find interval changes of hydronephrosis. Likely discharge tomorrow if improving hydronephrosis Diagnosis: Intractable abdominal pain with hematuria likely due to mild left hydronephrosis with a 3 mm stone at the left ureterovesical junction jocelyn vmn nonobstructing stone in the left renal collecting system measuring 17 mm Leukocytosis likely due to left hydronephrosis Hepatic steatosis Pulmonary nodules measuring up to 12 mm History of HIV History of nephrolithiasis History of right humerus surgery History of left wrist surgery plan: ivf pain control prn Continue other home medications Flomax Med surge Full code Plan discussed with: Patient Date of Service: Feb 11, 2025 Billing Provider: BLAYNE TATUM MD Common Visit Codes: [id number] INP/OBS CARE(HIGH) BLAYNE TATUM MD Feb 11, 2025 15:12
[2025-02-11] MEDS: SODIUM CHLORIDE 0.9% 1,000 ML IV SCH (17:32)
--- NOTE | 2025-02-12 01:34 | DVH ---
INDICATION: evaluate interval change hydronephrosisi left TECHNIQUE: Multiple real-time sonographic images of the kidneys and bladder were obtained. COMPARISON: None FINDINGS: RIGHT kidney measures 12.2 cm in length. No stones or hydronephrosis. Cortex appears echogenic. LEFT kidney measures 12.2 cm in length. Nonobstructing calculus at the lower pole kidney measuring 2.0 cm. No hydronephrosis. No large intraluminal masses are seen in the bladder. No significant postvoid residual. IMPRESSION: Nonobstructing left renal calculus. No hydronephrosis.
[2025-02-12 05:00] VITALS: BP 131/83; PULSE 70; RESP 19; TEMP 98.1; O2SAT 95
[2025-02-12 07:36] LABS: Alanine Aminotransferase 101 U/L (7-40); Albumin 4.1 g/dL (3.2-4.8); Alkaline Phosphatase 132 U/L (46-116); Anion Gap 9 (5-15); BUN/Creatinine Ratio 11.7 (10.0-20.0); Bilirubin, Total 0.4 mg/dL (0.2-1.0); Blood Urea Nitrogen 9 mg/dL (9-23); Calcium 8.9 mg/dL (8.7-10.4); Carbon Dioxide 27 mmol/L (20-31); Chloride 105 mmol/L (98-107); Glucose 102 mg/dL (74-106); Potassium 3.6 mmol/L (3.5-5.1); Sodium 141 mmol/L (136-145); Total Protein 7.3 g/dL (5.7-8.2)
[2025-02-12 08:00] VITALS: RESP 18
[2025-02-12 09:00] VITALS: BP 133/87; PULSE 87; RESP 20; TEMP 98.6; O2SAT 97
[2025-02-12] MEDS ORDERED: TAMS-35 PO (11:52)
--- NOTE | 2025-02-12 11:54 | DVHDS2 ---
Discharge Summary Date of Admission Feb 10, 2025 at 12:27 Date of Discharge: Feb 12, 2025 Labs/Diagnostic Data: Laboratory Results Test 02/12/25 05:45 02/11/25 06:13 02/10/25 20:00 02/10/25 17:05 Sodium Level 141 mmol/L (136-145) Potassium Level 3.6 mmol/L (3.5-5.1) Chloride Level 105 mmol/L (98-107) Carbon Dioxide Level 27 mmol/L (20-31) Anion Gap 9 (5-15) Blood Urea Nitrogen 9 mg/dL (9-23) Creatinine 0.77 mg/dL (0.700-1.30) Glomerular Filtration Rate Calc 113 mL/min (>90) BUN/Creatinine Ratio 11.7 (10.0-20.0) Serum Glucose 102 mg/dL (74-106) Calcium Level 8.9 mg/dL (8.7-10.4) Total Bilirubin 0.4 mg/dL (0.2-1.0) Aspartate Amino Transferase (AST) 80 U/L (13-40) Alanine Aminotransferase (ALT) 101 U/L (7-40) Alkaline Phosphatase 132 U/L (46-116) Total Protein 7.3 g/dL (5.7-8.2) Albumin 4.1 g/dL (3.2-4.8) White Blood Count 8.0 10^3/uL (4.4-10.8) Red Blood Count 4.63 10^6/uL (4.5-5.90) Hemoglobin 12.4 g/dL (13.5-17.5) Hematocrit 36.9 % (41.0-53.0) Mean Corpuscular Volume 79.8 fL (80.0-100.0) Mean Corpuscular Hemoglobin 26.9 pg (28.0-32.0) Mean Corpuscular Hemoglobin Concent 33.7 g/dL (32.0-36.0) Red Cell Distribution Width 17.1 % (11.8-14.3) Platelet Count 311 10^3/uL (140-450) Mean Platelet Volume 7.4 fL (6.9-10.8) Neutrophils (%) (Auto) 65.9 % (37.0-80.0) Lymphocytes (%) (Auto) 24.6 % (10.0-50.0) Monocytes (%) (Auto) 8.2 % (0.0-12.0) Eosinophils (%) (Auto) 0.8 % (0.0-7.0) Basophils (%) (Auto) 0.5 % (0.0-2.0) Neutrophils # (Auto) 5.3 10 ^3/uL (1.6-8.6) Lymphocytes # (Auto) 2.0 10 ^3/uL (0.4-5.4) Monocytes # (Auto) 0.7 10 ^3/uL (0-1.3) Eosinophils # (Auto) 0.1 10 ^3/uL (0-0.8) Basophils # (Auto) 0 10 ^3/uL (0-0.2) Nucleated Red Blood Cells 0.1 % Hepatitis B Surface Antigen Negative (Negative) Hepatitis C Antibody Reactive (Negative) Influenza Type A Antigen Negative (Negative) Influenza Type B Antigen Negative (Negative) SARS-CoV-2 Antigen (Rapid) Negative (NEGATIVE) CA 19-9 Antigen <2 U/mL (0-35) Test 02/10/25 08:16 Urine Color Yellow (Yellow) Urine Clarity Ex.turbid (Clear) Urine pH 5.5 (5.0-9.0) Urine Specific [place] 1.036 (1.001-1.035) Urine Protein 1+ (Negative) Urine Ketones Negative (Negative) Urine Blood 3+ /uL (Negative) Urine Nitrite Negative (Negative) Urine Bilirubin Negative (Negative) Urine Urobilinogen Normal mg/dL (Negative) Urine Leukocyte Esterase Negative /uL (Negative) Urine RBC 66 /hpf (0 - 3) Urine Microscopic WBC /HPF (0-3) Urine Squamous Epithelial Cells Few /hpf (<5) Urine Amorphous Crystals Mod /hpf (None Seen) Urine Bacteria None seen /hpf (None Seen) Urine Mucus Moderate (None Seen) Urine Glucose Trace mg/dL (Normal) Other Laboratory Tests 02/12/25 05:45 02/11/25 06:13 Brief Hx & Hospital Course: 44-year-old male with past medical history of HIV, kidney stones, left wrist surgery, and right humerus surgery who presents to the ED with abdominal pain that started today. Reports pain was 10/10 numb and constant. Reports that there are no triggering or alleviating factors. Patient reports that he lives at home with his . He also reports upon examination when he went to the bathroom here in the ED that he passed a stone. Patient also reports that he gets injections for his HIV once every 2 weeks on an outpatient basis. Patient reports he recently went to [facility] ago. Patient also reports that recent sick contacts of the flu. 02/11: Pulmonology signing out recommend [address] outpatient[address] Urology recommend expulsive measures. Continuing IV fluids. Continuing pain control. Patient screen HCV positive, patient already has HIV specialist, recommend follow up with his primary infectious disease to repeat HCV PCR levels. Tomorrow we will repeat kidney ultrasound to find interval changes of hydronephrosis. Likely discharge tomorrow if improving hydronephrosis 02/12: Renal ultrasound repeat showing resolving hydronephrosis, patient has urine episode where they here stone hitting the ball, pain resolving. Diagnosis: Left nephrolithiasis, with left hydronephrosis with a 3 mm stone at the left ureterovesical junction Intractable abdominal pain with hematuria likely due to above to jocelyn vmn, resolved nonobstructing stone in the left renal collecting system measuring 17 mm Leukocytosis likely due to left hydronephrosis Hepatic steatosis Pulmonary nodules measuring up to 12 mm History of HIV History of nephrolithiasis History of right humerus surgery History of left wrist surgery Plan: -Flomax 0.4 mg daily for 7 days -Aggressive fluid hydration -HCV antibody positive, follow up with your infectious disease specialist to we will do this result Follow up with pulmonology for pulmonary nodules workup. Continue other home medications not mentioned above -Follow up with PCP to review discharge Condition at Discharge: Fair Final Diagnosis/Problems List Left nephrolithiasis, with left hydronephrosis with a 3 mm stone at the left ureterovesical junction Intractable abdominal pain with hematuria likely due to above to jocelyn vmn, resolved nonobstructing stone in the left renal collecting system measuring 17 mm Leukocytosis likely due to left hydronephrosis Hepatic steatosis Pulmonary nodules measuring up to 12 mm History of HIV History of nephrolithiasis History of right humerus surgery History of left wrist surgery Discharge Disposition: Home Discharge Instruct/Medications Miscellaneous Medications Cabotegravir & Rilpivirine (Cabenuva 600 & 900 mg/3Ml), (Reported) Discharge Statement: "Patient was advised to return to the ER or call 911 if any headaches, dizziness, shortness of breath, chest pain, abdominal pain, bleeding, fevers, or worsening of medical condition. Patient was counseled about treatment plan, medications, possible side effects, patientverbalized understanding. All questions were answered to the best of my ability. This discharge took greater then 30 minutes in planning, reviewing documentation, counseling the patient, and discussing with other team members." ASSESSMENT ASSESSMENT Assessment Date of Service: Feb 12, 2025 Billing Provider: BLAYNE TATUM MD Common Visit Codes: 87984-VUL/OBS DISCH DAY >30min BLAYNE TATUM MD Feb 12, 2025 11:54
[2025-02-12 13:00] VITALS: BP 133/89; PULSE 83; RESP 18; TEMP 97.5; O2SAT 96
--- NOTE | 2025-02-12 14:16 | DVHPN2 ---
Progress Note - Dictate Date Seen: Feb 12, 2025 Medical Necessity Reason Pt with a Central, PICC or Fol: No vital signs Vital Sign Date Time Temp Pulse Resp B/P (MAP) Pulse Ox O2 Delivery O2 Flow Rate FiO2 02/12/25 13:00 97.5 83 18 133/89 (104) 96 97.5 02/12/25 08:00 Room Air* 0 21 Total Intake and Output 02/11/25 02/11/25 02/12/25 15:00 23:00 07:00 Intake Total 1050 ml 1400 ml 1800 ml Output Total 825 ml Balance 1050 ml 1400 ml 975 ml medications Current Medications Medications Dose Ordered Sig/John Route Start Time Stop Time Status Last Admin Dose Admin Tamsulosin HCl 0.4 mg QPM PO 02/10/25 18:00 02/11/25 17:36 0.4 MG Acetaminophen/ Hydrocodone Bitart 1 tab Q4HP PRN PO 02/10/25 12:30 Ondansetron HCl 4 mg Q4HP PRN IV 02/10/25 12:30 Acetaminophen 650 mg Q6HP PRN PO 02/10/25 12:30 Morphine Sulfate 2 mg Q4HPRN PRN IV 02/10/25 12:30 Ceftriaxone Sodium 50 ml @ 100 mls/hr DAILY@09 IV 02/10/25 12:30 02/12/25 09:14 100 MLS/HR Sodium Chloride 1,000 ml @ 75 mls/hr [id number] IV 02/11/25 17:15 02/12/25 05:42 75 MLS/HR laboratory and microbiology Laboratory Tests 02/12/25 05:45 02/11/25 06:13 Test 02/12/25 05:45 Range/Units Serum Glucose 102 74-106 mg/dL Assessment/Plan HIV on anti-retrovirals pulm nodules h/o Hep C pt seen and examined events none better CT reviewed no intervention required at this point recommend follow up in 2-3 months with rpt imaging out -pt continue supportive care per primary team ok to dc Plan discussed with: Other (rn) ALIA CARRENO MD Feb 12, 2025 14:16
== END 2025-02-12 13:55 | disposition home or self-care (01) | DRG 694 ==
LOC: ER 07:19 → OVERFLOW 12:27 → CENTRAL 02-11 02:44
PROVIDERS: ADMIT Student in an Organized Health Care Education/Training Program; ATTEND Student in an Organized Health Care Education/Training Program
DX: N13.2 Hydronephrosis with renal and ureteral calculous obstruction (principal); R65.10 Systemic inflammatory response syndrome (SIRS) of non-infectious origin without acute organ dysfunction; N17.0 Acute kidney failure with tubular necrosis; K76.0 Fatty (change of) liver, not elsewhere classified; Z87.442 Personal history of urinary calculi; B19.20 Unspecified viral hepatitis C without hepatic coma; Z20.822 Contact with and (suspected) exposure to COVID-19; R91.1 Solitary pulmonary nodule; R31.9 Hematuria, unspecified; Z79.899 Other long term (current) drug therapy
CPT/HCPCS: 36415; 71250; 74176; 76775; 80048; 80053; 81001; 85025; 86301; 86803; 87086; 87340; 87426; 87804; 96365; 96375; G0378; J2405